=== PATIENT | female | born 1985 | race Caucasian/White ===

== ENCOUNTER 2017-06-30 19:26 | Inpatient (IN) | payer MEDICAID ==
[~2017-06-30] VITALS: Ht 157.5 cm; Wt 89.9 kg
[2017-06-30 20:35] LABS: BASOPHIL % 1.4 % (0-2); PLATELET COUNT 228 x10^3mcL (130-400)
[2017-06-30 20:36] LABS: RED CELL DISTRIBUTION WIDTH 16.3 % (11.5-14.5)
[2017-06-30 21:27] LABS: CARBON DIOXIDE 26.3 mmol/L (21-32); CHLORIDE SERUM 106 mmol/L (98-107); CREATININE SERUM 0.5 mg/dL (0.6-1.0); GFR1 > 60 mL/min; GLUCOSE SERUM 77 mg/dL (74-106); POTASSIUM SERUM 3.3 mmol/L (3.5-5.1); SODIUM SERUM 141 mmol/L (136-145)
[2017-06-30 21:31] LABS: ALBUMIN 3.6 g/dL (3.4-5.0); ALKALINE PHOSPHATASE 65 U/L (46-116); ALT/SGPT 20 U/L (14-59); AST/SGOT 16 U/L (15-37); BILIRUBIN TOTAL 0.4 mg/dL (0.20-1.00); LIPASE 93 IU/L (73-393); TOTAL PROTEIN, SERUM 7.4 g/dL (6.4-8.2)
[2017-07-01] VITALS (8 sets, daily range): BP systolic 97–113; BP diastolic 37–73
[2017-07-01 00:16] LABS: microscopic required? NO
[2017-07-01 00:24] LABS: urine erythrocyte NEGATIVE (NEGATIVE)
[2017-07-01 00:33] LABS: T3 TOTAL 2.05 ng/mL
[2017-07-01 00:36] LABS: AMPHETAMINE QUAL UR NONE DETECTED (NEG <=1000)
[2017-07-01 00:39] LABS: FREE T4 0.56 ng/dL (0.76-1.46)
[2017-07-01 00:40] LABS: CHOLESTEROL/HDL RATIO 2.8; FREE THYROXINE INDEX 1.2 ug/dL (1.4-4.5); MAGNESIUM 2.1 mg/dL (1.8-2.4); PHOSPHOROUS 3.9 mg/dL (2.5-4.9); T4(THYROXINE) 3.4 ug/dL (4.7-13.3)
[2017-07-01 07:11] LABS: CALCIUM 8.3 mg/dL (8.5-10.1); CARBON DIOXIDE 22.9 mmol/L (21-32); CHLORIDE SERUM 109 mmol/L (98-107); CREATININE SERUM 0.5 mg/dL (0.6-1.0); GFR1 > 60 mL/min; GLUCOSE SERUM 80 mg/dL (74-106); POTASSIUM SERUM 3.7 mmol/L (3.5-5.1); SODIUM SERUM 141 mmol/L (136-145)
[2017-07-02] VITALS (7 sets, daily range): BP systolic 100–122; BP diastolic 45–73
[2017-07-02 06:06] LABS: BASOPHIL % 0.4 % (0-2); PLATELET COUNT 180 x10^3mcL (130-400)
[2017-07-02 06:23] LABS: CALCIUM 8.4 mg/dL (8.5-10.1); CARBON DIOXIDE 23.1 mmol/L (21-32); CHLORIDE SERUM 107 mmol/L (98-107); CREATININE SERUM 0.5 mg/dL (0.6-1.0); GFR1 > 60 mL/min; GLUCOSE SERUM 89 mg/dL (74-106); MAGNESIUM 1.9 mg/dL (1.8-2.4); PHOSPHOROUS 2.9 mg/dL (2.5-4.9); POTASSIUM SERUM 4.4 mmol/L (3.5-5.1); SODIUM SERUM 137 mmol/L (136-145)
[2017-07-02 06:47] LABS: RED CELL DISTRIBUTION WIDTH 16.3 % (11.5-14.5)
[2017-07-03 05:44] VITALS: BP 95/49
[2017-07-03 06:05] LABS: CALCIUM 8.8 mg/dL (8.5-10.1); CARBON DIOXIDE 25.6 mmol/L (21-32); CHLORIDE SERUM 106 mmol/L (98-107); CREATININE SERUM 0.5 mg/dL (0.6-1.0); GFR1 > 60 mL/min; GLUCOSE SERUM 86 mg/dL (74-106); POTASSIUM SERUM 4.3 mmol/L (3.5-5.1); SODIUM SERUM 139 mmol/L (136-145)
[2017-07-03 06:09] LABS: BASOPHIL % 0.5 % (0-2); PLATELET COUNT 200 x10^3mcL (130-400)
[2017-07-03 06:35] LABS: RED CELL DISTRIBUTION WIDTH 16.3 % (11.5-14.5)
[2017-07-03 08:55] VITALS: BP 107/53
[2017-07-03 12:23] VITALS: BP 107/56
[2017-07-03 15:57] VITALS: BP 106/59
[2017-07-03 20:40] VITALS: BP 104/61
[2017-07-04 05:47] VITALS: BP 104/55
[2017-07-04 06:16] LABS: BASOPHIL % 0.5 % (0-2); PLATELET COUNT 171 x10^3mcL (130-400)
[2017-07-04 06:50] LABS: RED CELL DISTRIBUTION WIDTH 16.3 % (11.5-14.5)
[2017-07-04] MEDS ORDERED: NOR10T PO (09:17)
[2017-07-04] MEDS ORDERED: SIMETHICONE80 MG CH (09:18)
[2017-07-04] MEDS ORDERED: COL100 PO (09:19)
[2017-07-04 09:43] VITALS: BP 106/57
[2017-07-04 11:30] VITALS: BP 106/57
== END 2017-07-04 12:31 | disposition home or self-care (01) | DRG 263 ==
LOC: ED 19:26 → DU 23:10 → MU 23:10 → DU 07-01 00:24 → MU 07-01 09:26
PROVIDERS: Emergency Medicine; Family Medicine; Surgery; ADMIT Family Medicine
PROC: 0FT44ZZ Resection of Gallbladder, Percutaneous Endoscopic Approach (ICD-10-PCS; principal; 2017-07-02 08:00)
DX: K80.10 Calculus of gallbladder with chronic cholecystitis without obstruction (principal); E83.51 Hypocalcemia; E87.6 Hypokalemia; R73.03 Prediabetes; E03.9 Hypothyroidism, unspecified; F19.10 Other psychoactive substance abuse, uncomplicated; D64.9 Anemia, unspecified; E66.9 Obesity, unspecified; Z68.36 Body mass index [BMI] 36.0-36.9, adult
CPT/HCPCS: 82962; 83880; 84439; 85378; 94150; J0330; J0690; J1170; J1885; J2175; J2250; J2270; J2405; J2704; J2710; J3010; J3490; J7030; J7120; Q0092